=== PATIENT | male | born 2000 | race Caucasian/White ===

== ENCOUNTER → 2024-01-25 | Outpatient (CLI) | payer OTHER | LOC: M SOG 14:41 | PROVIDERS: ATTEND Physician Assistant | DX: M79.641 Pain in right hand (principal); S62.306A Unspecified fracture of fifth metacarpal bone, right hand, initial encounter for closed fracture; X58.XXXA Exposure to other specified factors, initial encounter; Y92.9 Unspecified place or not applicable ==

== ENCOUNTER → 2024-02-08 | Outpatient (CLI) | payer OTHER | LOC: M SOG 08:00 | PROVIDERS: ATTEND Physician Assistant | DX: M79.641 Pain in right hand (principal); Z87.81 Personal history of (healed) traumatic fracture ==

== ENCOUNTER → 2024-03-07 | Outpatient (CLI) | payer OTHER | LOC: M SOG 07:54 | PROVIDERS: ATTEND Physician Assistant | DX: M79.641 Pain in right hand (principal); M79.89 Other specified soft tissue disorders ==

== ENCOUNTER → 2024-04-11 | Outpatient (CLI) | payer OTHER | LOC: M SOG 07:27 | PROVIDERS: ATTEND Physician Assistant | DX: M79.641 Pain in right hand (principal); Z53.9 Procedure and treatment not carried out, unspecified reason ==

== ENCOUNTER → 2024-04-25 | Outpatient (CLI) | payer OTHER | LOC: M SOG 07:29 | PROVIDERS: ATTEND Physician Assistant | DX: Z53.9 Procedure and treatment not carried out, unspecified reason (principal) ==

== ENCOUNTER 2025-04-15 12:46 | Emergency (ER) | payer OTHER ==
[~2025-04-15] VITALS: Ht 177.8 cm; Wt 105.5 kg
[2025-04-15 16:32] VITALS: BP 125/65; TEMP 97.9; O2SAT 100
== END 2025-04-15 17:16 | disposition left against medical advice (07) ==
LOC: M ED 12:46
DX: Z53.21 Procedure and treatment not carried out due to patient leaving prior to being seen by health care provider (principal)